=== PATIENT | female | born 1965 | race African-American/Black ===

== ENCOUNTER 2016-09-28 09:27 | Emergency (ER) | payer MEDICAID ==
[~2016-09-28] VITALS: Ht 157.5 cm; Wt 75.0 kg
[~2016-09-28 09:27] MED LIST: [UNRECOGNIZED DRUG - REMARK]
[2016-09-28 10:28] LABS: CLARITY URINE CLEAR (CLEAR); COLOR URINE YELLOW (YELLOW); GLUCOSE URINE NEGATIVE (NEGATIVE); KETONES URINE TRACE (NEGATIVE); LEUKOCYTE ESTERASE URINE NEGATIVE (NEGATIVE); NITRITE URINE NEGATIVE (NEGATIVE); OCCULT BLOOD URINE NEGATIVE (NEGATIVE); PROTEIN URINE NEGATIVE (NEGATIVE); SPECIFIC GRAVITY URINE 1.012 (1.005-1.030); UROBILINOGEN URINE 0.2 E.U./dL (0.2-1.0)
[2016-09-28] MEDS ORDERED: TRAMADOL 50MG TABLET PO ONE (10:30)
[2016-09-28 11:27] LABS: BASOPHILS % 1.9 % (0.0-2.0); EOSINOPHILS % 0.9 % (0.0-5.0); HEMATOCRIT. 27.6 % (36.0-48.0); HEMOGLOBIN. 8.6 g/dL (12.0-16.0); LYMPHOCYTES % 23.7 % (20.0-50.0); MEAN CORPUSCULAR HEMOGLOBIN 23.3 pg (28.0-32.0); MEAN CORPUSCULAR VOLUME 75.2 fL (81.0-99.0); MEAN PLATELET VOLUME 10.1 fl (7.4-10.4); MONOCYTES % 11.1 % (2.0-8.0); NEUTROPHILS % 62.4 % (40.0-76.0); PLATELET 272 x1000/uL (130-400); RED BLOOD CELL COUNT 3.67 mill/uL (4.2-5.4); RED CELL DISTRIBUTION WIDTH 17.9 % (11.6-14.6)
[2016-09-28] MEDS ORDERED: HYDROCODONE/ACETAMINOPHEN 5/325MG TABLET PO ONE (11:30)
[2016-09-28 11:36] LABS: HCG SCREEN NEGATIVE
[2016-09-28 11:40] LABS: CARBON DIOXIDE 27 mEq/L (21-32); CHLORIDE 108 mEq/L (98-107)
[2016-09-28 12:41] VITALS: BP 152/80
== END 2016-09-28 12:42 | disposition home or self-care (01) ==
LOC: ER 10:24
DX: N20.0 Calculus of kidney (principal); Z88.8 Allergy status to other drugs, medicaments and biological substances; F12.10 Cannabis abuse, uncomplicated
CPT/HCPCS: 36415; 76770; 80053; 81003; 81025; 84703; 85025; 99285

== ENCOUNTER 2020-06-05 22:55 | Emergency (ER) | payer MEDICAID ==
[~2020-06-05] VITALS: Ht 172.7 cm; Wt 64.0 kg
[2020-06-06 01:03] LABS: BASOPHILS % 0.7 % (0.0-2.0); EOSINOPHILS % 1.6 % (0.0-5.0); HEMATOCRIT. 37.2 % (36.0-48.0); HEMOGLOBIN. 12.5 g/dL (12.0-16.0); MEAN CORPUSCULAR VOLUME 92.2 fL (81.0-99.0); MEAN PLATELET VOLUME 11.1 fl (7.4-10.4); MONOCYTES % 10.3 % (2.0-8.0); NEUTROPHILS % 48.4 % (40.0-76.0); PLATELET 211 x1000/uL (130-400); RED BLOOD CELL COUNT 4.04 mill/uL (4.2-5.4); RED CELL DISTRIBUTION WIDTH 13.5 % (11.6-14.6)
[2020-06-06 01:15] LABS: CHLORIDE 113 mEq/L (98-107)
[2020-06-06 01:27] LABS: PARTIAL THROMBOPLASTIN TIME 29.5 sec (23.4-31.0); PROTHROMBIN TIME 10.3 sec (9.6-11.0)
[2020-06-06] MEDS ORDERED: BO1 TP (02:13)
[2020-06-06] MEDS ORDERED: HYDR12.54 MT (02:13)
[2020-06-06] MEDS ORDERED: BACITRACIN ZINC OINT UDPKT TOP ONE (02:30)
[2020-06-06 04:00] VITALS: BP 168/98
[2020-06-06] MEDS ORDERED: OXYMETAZOLINE HCL NASAL SPRAY 15ML BOTHNSTRLS SCH (09:00)
== END 2020-06-06 05:00 | disposition home or self-care (01) ==
LOC: ER 22:55
DX: R04.0 Epistaxis (principal); I10 Essential (primary) hypertension; F12.10 Cannabis abuse, uncomplicated; Z98.890 Other specified postprocedural states; Z88.6 Allergy status to analgesic agent
CPT/HCPCS: 36415; 80048; 85025; 99283

== ENCOUNTER 2023-01-26 19:51 | Emergency (ER) | payer MEDICAID, OTHER ==
[~2023-01-26] VITALS: Ht 167.6 cm; Wt 70.0 kg
[~2023-01-26 19:51] MED LIST changes: +BO1 TP; +HYDR12.54 MT
[2023-01-26 20:31] VITALS: TEMP 100.1
[2023-01-26 20:50] VITALS: BP 128/82
[2023-01-26] MEDS ORDERED: IPRATROPIUM BROMIDE (0.02%) 0.5MG/2.5ML NEB HHN STA (20:50)
[2023-01-26] MEDS ORDERED: ALBUTEROL (0.083%) 2.5MG/3ML NEB HHN STA (20:50)
[2023-01-26] MEDS ORDERED: KETOROLAC 60MG/2ML VIAL IM STA (20:50)
[2023-01-26] MEDS ORDERED: METHYLPREDNISOLONE SOD SUCC 125MG/2ML (ACT-O-VIAL) IM STA (20:50)
[2023-01-26] MEDS ORDERED: AMOXICILLIN/POTASSIUM CLAVULANATE 875/125MG TAB PO ONE (21:00)
[2023-01-26] MEDS ORDERED: AMOX1TAB16 MT (21:46)
[2023-01-26] MEDS ORDERED: NAPR-681 PO (21:46)
[2023-01-26] MEDS ORDERED: P20 PO (21:46)
[2023-01-26] MEDS ORDERED: ALBU18HF2 IH (21:46)
[2023-01-26 21:51] VITALS: PULSE 88; RESP 18; O2SAT 97
== END 2023-01-26 22:33 | disposition home or self-care (01) ==
LOC: ER 19:51
DX: J45.901 Unspecified asthma with (acute) exacerbation (principal); F12.90 Cannabis use, unspecified, uncomplicated; Z88.6 Allergy status to analgesic agent
CPT/HCPCS: 96372; 99284; J1885; J2930; Z7610

== ENCOUNTER 2023-09-18 03:44 | Emergency (ER) | payer MEDICAID, OTHER ==
[~2023-09-18] VITALS: Ht 165.1 cm; Wt 77.0 kg
[~2023-09-18 03:44] MED LIST changes: +ALBU18HF2 IH; +AMOX1TAB16 MT; +NAPR-681 PO; +P20 PO
[2023-09-18 03:45] VITALS: BP 135/78; PULSE 77; RESP 16; TEMP 97.8; O2SAT 96
[2023-09-18] MEDS: ACETAMINOPHEN 325MG TABLET PO ONE (04:04)
[2023-09-18] MEDS ORDERED: MED4 MT (04:33)
[2023-09-18] MEDS ORDERED: ACET-2708 MT (04:33)
== END 2023-09-18 04:38 | disposition home or self-care (01) ==
LOC: ER 03:44
DX: M72.2 Plantar fascial fibromatosis (principal); F12.10 Cannabis abuse, uncomplicated; J45.909 Unspecified asthma, uncomplicated; I10 Essential (primary) hypertension
CPT/HCPCS: 73630; 99283; Z7610